=== PATIENT | female | born 2000 | race African-American/Black ===

== ENCOUNTER 2020-04-19 10:01 | Emergency (ER) | payer SELFPAY ==
[2020-04-19 10:02] VITALS: BP 127/87; PULSE 82; RESP 16; TEMP 36.6; O2SAT 100; BMI 25.0
--- NOTE | 2020-04-19 10:21 | ED.VIS.GEN ---
History of Present Illness Chief Complaint: Abd Pain Informant: Patient, Family Onset: Days Context: Gradual Onset Timing: Waxes and wanes Current Severity: Mild Maximum Severity: Moderate Narrative: Patient presents with what she believes is a nervous stomach. She states that she has a lot of problems with anxiety has had multiple recent stressors. When she gets anxiety she gets a nervous stomach and will sometimes get nausea and vomiting. She states that she is feels better when she stays at her parents house but is more anxiety when she states that her apartment. She recently found out that her roommate is moving out. She had to find a new job and is not doing well in her college classes. She was seen by a psychologist recently and given 5 tabs of Ativan to use as needed. Patient states she waited too long to take some and ended up vomiting them up before they could help her. She denies fever or chills. She has been able to tolerate p.o. but does have intermittent vomiting. No weight loss. No recent diarrhea. Abdominal pain is not focal and patient states right now she does not have any symptoms. - Past Medical History (1) Anxiety Status: Chronic Past Medical History - Allergies and Home Meds Allergies/Adverse Reactions: Allergies No Known Allergies Allergy (Verified 04/19/20 10:04) Primary Care Physician: Desire Maddox MD [Primary Care Provider] - Prior records reviewed: Yes Lives: Alone Smoking Status: Never smoker Review of Systems General: Denies: Chills, Fever Eyes: Denies: Visual changes - bilaterally ENT: Denies: Bilateral ear pain Cardiovascular: Denies: Chest pain Respiratory: Denies: Dyspnea, Cough Gastrointestinal: Reports: Abdominal pain, Nausea, Vomiting Genitourinary: Denies: Dysuria Musculoskeletal: Denies: Swelling, Extremity Pain Skin: Denies: Rash Neurological: Denies: Headache Hematologic: Denies: Easy bruising, Easy bleeding Allergy: Denies: Uticaria Physical Exam Vital Signs/Narrative: Vital Signs Temp Pulse Resp BP Pulse Ox 04/19/20 10:02 97.9 F 82 16 127/87 H 100 Inital Vital Signs reviewed: Yes General: Well nourished, Well developed Head: Normocephalic ENT: Moist mucous membranes Neck: Supple Cardiovascular: Regular rate, Regular rhythm Respiratory: No distress, CTA bilaterally Abdomen: Soft, Nontender, Normal bowel sounds Extremities: Nontender Skin: Normal color, No rash Neurological: Alert, Oriented x3 Psychological: Normal affect Diagnostic/Tx/Re-eval - Medical Decision Making At this time patient would prefer not to have any lab work or testing done. With her benign exam and history I do not feel this is unreasonable. We will treat her for reflux as well as give her some Ativan for anxiety. If she develops more focal pain, more continuous vomiting, fever, etc. she is advised to return for further work-up. She and mother at bedside are comfortable with this plan. ED Disposition - Plan for ED Patient: Disposition: Home or Assisted Living Diagnosis: Anxiety, GERD (gastroesophageal reflux disease) Instructions: ED Stress React Prescriptions: Lorazepam [Ativan] 0.5 mg PO TID PRN #10 tablet PRN Reason: Anxiety Transmission Status: Received by [id number] Omeprazole [Prilosec] 20 mg PO DAILY #30 cap Transmission Status: Pending to [id number] Ondansetron [Zofran Odt] 4 mg PO Q8H PRN PRN #10 tab PRN Reason: Nausea Transmission Status: Pending to [id number] Referrals: Desire Maddox MD [Primary Care Provider] - As Needed
[2020-04-19 10:41] VITALS: RESP 16
== END 2020-04-19 10:42 | disposition home or self-care (01) ==
LOC: ED 10:38
PROVIDERS: Emergency Provider Emergency Medicine; PCP Pediatrics
DX: F41.9 Anxiety disorder, unspecified (principal); K21.9 Gastro-esophageal reflux disease without esophagitis
CPT/HCPCS: 99281; 99283